=== PATIENT | male | born 1960 | race Caucasian/White ===

== ENCOUNTER 2018-06-09 18:48 | Inpatient (IN) | payer OTHER ==
[~2018-06-09] VITALS: Ht 193 cm; Wt 116.9 kg
[2018-06-09] MEDS ORDERED: NALOXONE 1 MG/ML, 2ML ONE (18:52)
[2018-06-09] MEDS ORDERED: PLEASE ENTER HEIGHT AND WEIGHT MC SCH (19:00)
[2018-06-09] MEDS ORDERED: SODIUM CHLORIDE 0.9% 1,000ML IVBOLUS ONE (19:00)
[2018-06-09] MEDS ORDERED: PROPOFOL 100 ML IV ONE (19:09)
[2018-06-09 19:10] LABS: BASOPHILS # (AUTO) 0.05 x10^3/uL (0-0.1); BASOPHILS % (AUTO) 0 % (0-1); EOSINOPHILS % (AUTO) 0 % (1-7); LYMPHOCYTES # (AUTO) 1.04 x10^3/uL (1-3.4); LYMPHOCYTES % (AUTO) 6 % (22-44); MD NO; MEAN CORPUSCULAR HEMOGLOBIN 30.6 pg (27.5-34.5); MEAN CORPUSCULAR HGB CONC 33.1 g/dL (33.2-36.2); MEAN CORPUSCULAR VOLUME 92.3 fL (81-97); MEAN PLATELET VOLUME 8.2 fL (7.4-10.4); MONOCYTES % (AUTO) 8 % (2-9); NEUTROPHILS # (AUTO) 14.96 x10^3/uL (1.8-6.8); NEUTROPHILS % (AUTO) 86 % (42-75); PLATELET COUNT 271 x10^3/uL (130-400); RED BLOOD COUNT 5.46 x10^6/uL (4.38-5.82); RED CELL DISTRIBUTION WIDTH 13.6 % (9.4-14.8)
[2018-06-09 19:15] LABS: INTERNATIONAL NORMALIZED RATIO 1.11 (0.93-1.1); PROTHROMBIN TIME 11.5 Seconds (9.6-11.5)
[2018-06-09 19:22] LABS: ALANINE AMINOTRANSFERASE 31 U/L (12-78); ANION GAP 10 mmol/L (5-15); CALCIUM 8.7 mg/dL (8.5-10.1); CHLORIDE 103 mmol/L (98-107); CREATININE 2.51 mg/dL (0.7-1.3)
[2018-06-09 19:23] LABS: SALICYLATE LEVEL < 1.7 mg/dL (2.8-20.0)
[2018-06-09 19:24] LABS: ALKALINE PHOSPHATASE 77 U/L (45-117); BILIRUBIN,TOTAL 0.3 mg/dL (0.2-1.0); TOTAL PROTEIN 8.9 g/dL (6.4-8.2)
[2018-06-09 19:25] LABS: ACETAMINOPHEN < 2 mcg/mL (10-30)
[2018-06-09] MEDS ORDERED: ROCURONIUM 10 MG/ML,10ML IVPush ONE (19:30)
[2018-06-09] MEDS ORDERED: ETOMIDATE 40 MG/20 ML IVPush ONE (19:30)
[2018-06-09] MEDS ORDERED: PROPOFOL 100 ML IV PRN ×2 (19:30→21:05)
[2018-06-09 20:20] LABS: MICROSCOPIC INDICATED
[2018-06-09] MEDS ORDERED: CEFTRIAXONE 1,000 MG in SODIUM CHLORIDE 0.9% 50 ML IV SCH (20:30)
[2018-06-09] MEDS ORDERED: NALOXONE 1 MG/ML, 2ML IVPush ONE (20:30)
[2018-06-09 20:32] LABS: CULTURE INDICATED? YES
[2018-06-09] MEDS ORDERED: SODIUM CHLORIDE 0.9% 1,000 ML IV SCH (20:51)
[2018-06-09] MEDS ORDERED: ONDANSETRON 2MG/ML, 2ML IVPush PRN (21:00)
[2018-06-09] MEDS ORDERED: ACETAMINOPHEN 650 MG/20.3 ML UDC NG PRN (21:30)
[2018-06-09] MEDS ORDERED: PHARMACY MAY ADJ FOR RENAL FX MC SCH (21:30)
[2018-06-09] MEDS ORDERED: LIDOCAINE-MPF 1%, 2ML ENDO PRN (21:30)
[2018-06-09] MEDS ORDERED: ETOMIDATE 20 MG/10 ML ONE (21:44)
[2018-06-09] MEDS ORDERED: ROCURONIUM 10 MG/ML,10ML ONE (21:44)
[2018-06-09] MEDS: FAMOTIDINE 20 MG/2 ML IV SCH (22:06)
[2018-06-09] MEDS: AMPICILLIN/SULBACTAM 1,500 MG in SODIUM CHLORIDE 0.9% 50 ML IV SCH (22:06)
[2018-06-09] MEDS: HEPARIN 5,000 UNITS/ML, 1ML SQ SCH (22:06)
[2018-06-09] MEDS: ALBUTEROL/IPRATROPIUM 2.5MG/0.5MG, 3 ML INLINE SCH (22:30)
[2018-06-09] MEDS ORDERED: LEVO200T PO (22:50)
[2018-06-09 23:03] VITALS: BP 103/73
[2018-06-09 23:09] LABS: AMPHETAMINE SCREEN, URINE Negative (Negative); BARBITURATE SCREEN, URINE Negative (Negative); BENZODIAZEPINE SCREEN, URINE Negative (Negative); CANNABINOID SCREEN, URINE Negative (Negative); COCAINE SCREEN, URINE Negative (Negative); METHADONE SCREEN, URINE Negative (Negative); OPIATE SCREEN, URINE Positive (Negative)
[2018-06-10] MEDS: ALBUTEROL/IPRATROPIUM 2.5MG/0.5MG, 3 ML INLINE SCH ×6 (02:21→22:22)
[2018-06-10] MEDS: AMPICILLIN/SULBACTAM 1,500 MG in SODIUM CHLORIDE 0.9% 50 ML IV SCH ×2 (04:07→09:42)
[2018-06-10 04:39] LABS: ALANINE AMINOTRANSFERASE 26 U/L (12-78); ALBUMIN 3.5 g/dL (3.4-5.0); ANION GAP 5 mmol/L (5-15); CALCIUM 7.7 mg/dL (8.5-10.1); CHLORIDE 112 mmol/L (98-107)
[2018-06-10 04:43] LABS: BASOPHILS # (AUTO) 0.01 x10^3/uL (0-0.1); BASOPHILS % (AUTO) 0 % (0-1); EOSINOPHILS # (AUTO) 0.01 x10^3/uL (0-0.4); EOSINOPHILS % (AUTO) 0 % (1-7); LYMPHOCYTES # (AUTO) 0.52 x10^3/uL (1-3.4); LYMPHOCYTES % (AUTO) 5 % (22-44); MD NO; MEAN CORPUSCULAR HEMOGLOBIN 31.4 pg (27.5-34.5); MEAN CORPUSCULAR HGB CONC 34.2 g/dL (33.2-36.2); MEAN CORPUSCULAR VOLUME 91.7 fL (81-97); MEAN PLATELET VOLUME 8.1 fL (7.4-10.4); MONOCYTES # (AUTO) 0.78 x10^3/uL (0.2-0.8); MONOCYTES % (AUTO) 7 % (2-9); NEUTROPHILS # (AUTO) 10.31 x10^3/uL (1.8-6.8); NEUTROPHILS % (AUTO) 89 % (42-75); PLATELET COUNT 181 x10^3/uL (130-400); RED BLOOD COUNT 4.98 x10^6/uL (4.38-5.82); RED CELL DISTRIBUTION WIDTH 13.8 % (9.4-14.8)
[2018-06-10 04:49] LABS: ALKALINE PHOSPHATASE 65 U/L (45-117); BILIRUBIN,TOTAL 0.4 mg/dL (0.2-1.0)
[2018-06-10] MEDS: FAMOTIDINE 20 MG/2 ML IV SCH ×2 (08:14→19:45)
[2018-06-10] MEDS: HEPARIN 5,000 UNITS/ML, 1ML SQ SCH ×2 (08:14→19:45)
[2018-06-10] MEDS: SODIUM CHLORIDE 0.9% 1,000 ML IV SCH ×2 (12:59→20:30)
[2018-06-10] MEDS: AMPICILLIN/SULBACTAM 3 GM in SODIUM CHLORIDE 0.9% 100 ML IV SCH ×2 (15:21→19:45)
[2018-06-11] MEDS: ALBUTEROL/IPRATROPIUM 2.5MG/0.5MG, 3 ML INLINE SCH ×6 (02:30→22:00)
[2018-06-11] MEDS: AMPICILLIN/SULBACTAM 3 GM in SODIUM CHLORIDE 0.9% 100 ML IV SCH ×4 (03:09→20:17)
[2018-06-11] MEDS: SODIUM CHLORIDE 0.9% 1,000 ML IV SCH ×3 (03:09→22:35)
[2018-06-11 04:45] LABS: ALANINE AMINOTRANSFERASE 19 U/L (12-78); ALBUMIN 2.8 g/dL (3.4-5.0); ANION GAP 3 mmol/L (5-15); CALCIUM 7.7 mg/dL (8.5-10.1); CHLORIDE 115 mmol/L (98-107); CREATININE 0.96 mg/dL (0.7-1.3)
[2018-06-11 04:46] LABS: BASOPHILS # (AUTO) 0.05 x10^3/uL (0-0.1); BASOPHILS % (AUTO) 1 % (0-1); EOSINOPHILS # (AUTO) 0.02 x10^3/uL (0-0.4); EOSINOPHILS % (AUTO) 0 % (1-7); LYMPHOCYTES # (AUTO) 0.94 x10^3/uL (1-3.4); LYMPHOCYTES % (AUTO) 11 % (22-44); MD NO; MEAN CORPUSCULAR HEMOGLOBIN 31.1 pg (27.5-34.5); MEAN CORPUSCULAR HGB CONC 33.8 g/dL (33.2-36.2); MEAN CORPUSCULAR VOLUME 91.9 fL (81-97); MONOCYTES # (AUTO) 0.76 x10^3/uL (0.2-0.8); MONOCYTES % (AUTO) 9 % (2-9); NEUTROPHILS % (AUTO) 79 % (42-75); PLATELET COUNT 141 x10^3/uL (130-400); RED BLOOD COUNT 4.14 x10^6/uL (4.38-5.82); RED CELL DISTRIBUTION WIDTH 13.7 % (9.4-14.8)
[2018-06-11 04:47] LABS: ALKALINE PHOSPHATASE 49 U/L (45-117); BILIRUBIN,TOTAL 0.7 mg/dL (0.2-1.0); TOTAL PROTEIN 6.8 g/dL (6.4-8.2)
[2018-06-11] MEDS: HEPARIN 5,000 UNITS/ML, 1ML SQ SCH (12:28)
[2018-06-11] MEDS: FAMOTIDINE 20 MG/2 ML IV SCH ×2 (12:29→14:00)
[2018-06-11] MEDS ORDERED: ALTEPLASE 100 MG in BAG 1 EACH IV ONE (13:30)
[2018-06-11] MEDS ORDERED: CALCIUM CHLORIDE 10%, 10ML SYR ONE (13:30)
[2018-06-11] MEDS ORDERED: EPINEPHRINE SYRINGE 0.1 MG/ML, 10ML ONE ×2 (13:30→18:00)
[2018-06-11] MEDS ORDERED: SODIUM BICARB 8.4%, 50ML SYRINGE ONE ×3 (13:30→18:00)
[2018-06-11] MEDS ORDERED: EPINEPHRINE 1 MG/ML, 30ML ONE (13:30)
[2018-06-11] MEDS ORDERED: SODIUM CHLORIDE 0.9%, 250ML ONE (13:30)
[2018-06-11] MEDS ORDERED: SODIUM BICARB 8.4%, 50ML SYRINGE IVPush STA ×2 (13:53)
[2018-06-11 13:56] LABS: ALANINE AMINOTRANSFERASE 72 U/L (12-78); ALBUMIN 2.8 g/dL (3.4-5.0); ANION GAP 18 mmol/L (5-15); CALCIUM 10.3 mg/dL (8.5-10.1); CHLORIDE 113 mmol/L (98-107); CREATININE 1.41 mg/dL (0.7-1.3)
[2018-06-11] MEDS ORDERED: EPINEPHRINE 1 MG in SODIUM CHLORIDE 0.9% 249 ML IV PRN (13:56)
[2018-06-11] MEDS: SODIUM BICARBONATE 8.4% 150 MEQ in DEXTROSE 5% 1,000 ML IV SCH ×2 (14:00→22:36)
[2018-06-11] MEDS ORDERED: LIDOCAINE-MPF 1%, 2ML ENDO PRN (14:00)
[2018-06-11] MEDS ORDERED: SODIUM BICARBONATE 8.4% 150 MEQ in DEXTROSE 5% 1,000 ML IV SCH (14:00)
[2018-06-11] MEDS ORDERED: PHARMACY MAY ADJ FOR RENAL FX MC SCH (14:00)
[2018-06-11 14:01] LABS: ALKALINE PHOSPHATASE 55 U/L (45-117); BILIRUBIN,TOTAL 0.4 mg/dL (0.2-1.0); TOTAL PROTEIN 6.7 g/dL (6.4-8.2); TROPONIN I 0.182 ng/mL (0.000-0.045)
[2018-06-11 14:25] LABS: BASOPHILS # (AUTO) 0.05 x10^3/uL (0-0.1); BASOPHILS % (AUTO) 0 % (0-1); EOSINOPHILS # (AUTO) 0.03 x10^3/uL (0-0.4); EOSINOPHILS % (AUTO) 0 % (1-7); LYMPHOCYTES # (AUTO) 3.54 x10^3/uL (1-3.4); LYMPHOCYTES % (AUTO) 30 % (22-44); MD NO; MEAN CORPUSCULAR HEMOGLOBIN 31.3 pg (27.5-34.5); MEAN CORPUSCULAR HGB CONC 33.2 g/dL (33.2-36.2); MEAN CORPUSCULAR VOLUME 94.4 fL (81-97); MEAN PLATELET VOLUME 8.4 fL (7.4-10.4); MONOCYTES % (AUTO) 6 % (2-9); NEUTROPHILS # (AUTO) 7.48 x10^3/uL (1.8-6.8); NEUTROPHILS % (AUTO) 63 % (42-75); PLATELET COUNT 118 x10^3/uL (130-400); RED BLOOD COUNT 4.75 x10^6/uL (4.38-5.82)
[2018-06-11] MEDS: PHENYLEPHRINE 20 MG in SODIUM CHLORIDE 0.9% 248 ML IV PRN ×3 (14:32→21:34)
[2018-06-11] MEDS: PROPOFOL 100 ML IV PRN ×3 (14:33→21:34)
[2018-06-11] MEDS ORDERED: VASOPRESSIN 100 UNIT in SODIUM CHLORIDE 0.9% 495 ML IV SCH (15:00)
[2018-06-11] MEDS ORDERED: ATROPINE SYRINGE 0.1 MG/ML, 10ML ONE (18:00)
[2018-06-11] MEDS ORDERED: HEPARIN PROTOCOL IIB/IIIA POST-LYTIC MC STA (18:04)
[2018-06-11] MEDS ORDERED: HEPARIN 25,000 UNITS/500ML PMX 500 ML IV STA (18:04)
[2018-06-11] MEDS ORDERED: HEPARIN 5,000 UNITS/ML, 1ML IV ONE (18:30)
[2018-06-11] MEDS ORDERED: HEPARIN PROTOCOL IIB/IIIA POST-LYTIC MC PRN (18:30)
[2018-06-11] MEDS: HEPARIN 25,000 UNITS/500ML PMX 500 ML IV PRN (19:12)
[2018-06-11 19:17] LABS: ANION GAP 9 mmol/L (5-15); CALCIUM 7.9 mg/dL (8.5-10.1); CHLORIDE 110 mmol/L (98-107)
[2018-06-11 19:22] LABS: CREATININE 2.21 mg/dL (0.7-1.3)
[2018-06-12] MEDS: ALBUTEROL/IPRATROPIUM 2.5MG/0.5MG, 3 ML INLINE SCH ×6 (02:00→22:23)
[2018-06-12] MEDS: FAMOTIDINE 20 MG/2 ML IV SCH (02:41)
[2018-06-12] MEDS: AMPICILLIN/SULBACTAM 3 GM in SODIUM CHLORIDE 0.9% 100 ML IV SCH ×4 (02:41→21:46)
[2018-06-12] MEDS: PROPOFOL 100 ML IV PRN ×5 (02:42→21:46)
[2018-06-12 04:27] LABS: ANION GAP 4 mmol/L (5-15); CALCIUM 7.2 mg/dL (8.5-10.1); CHLORIDE 112 mmol/L (98-107); CREATININE 2.95 mg/dL (0.7-1.3)
[2018-06-12 04:41] LABS: BASOPHILS # (AUTO) 0.03 x10^3/uL (0-0.1); BASOPHILS % (AUTO) 0 % (0-1); EOSINOPHILS % (AUTO) 0 % (1-7); LYMPHOCYTES % (AUTO) 13 % (22-44); MD NO; MEAN CORPUSCULAR HEMOGLOBIN 30.9 pg (27.5-34.5); MEAN CORPUSCULAR HGB CONC 34.2 g/dL (33.2-36.2); MEAN CORPUSCULAR VOLUME 90.6 fL (81-97); MEAN PLATELET VOLUME 7.9 fL (7.4-10.4); MONOCYTES # (AUTO) 0.76 x10^3/uL (0.2-0.8); MONOCYTES % (AUTO) 11 % (2-9); NEUTROPHILS # (AUTO) 5.33 x10^3/uL (1.8-6.8); NEUTROPHILS % (AUTO) 76 % (42-75); PLATELET COUNT 129 x10^3/uL (130-400); RED BLOOD COUNT 4.12 x10^6/uL (4.38-5.82); RED CELL DISTRIBUTION WIDTH 13.6 % (9.4-14.8)
[2018-06-12] MEDS: SODIUM CHLORIDE 0.9% 1,000 ML IV SCH ×4 (05:29→23:54)
[2018-06-12] MEDS ORDERED: OMNIPAQUE 350 MG/ML, 100ML BOTTLE ONE (06:01)
[2018-06-12] MEDS: SODIUM BICARBONATE 8.4% 150 MEQ in DEXTROSE 5% 1,000 ML IV SCH ×2 (08:38→18:16)
[2018-06-12 08:55] LABS: AMPHETAMINE SCREEN, URINE Negative (Negative); BARBITURATE SCREEN, URINE Negative (Negative); BENZODIAZEPINE SCREEN, URINE Negative (Negative); CANNABINOID SCREEN, URINE Negative (Negative); COCAINE SCREEN, URINE Negative (Negative); METHADONE SCREEN, URINE Negative (Negative); OPIATE SCREEN, URINE Positive (Negative)
[2018-06-12] MEDS: HEPARIN 25,000 UNITS/500ML PMX 500 ML IV PRN (17:21)
[2018-06-12] MEDS: ASPIRIN 81 MG TABLET CHEW PO SCH (18:17)
[2018-06-13] MEDS: HEPARIN 25,000 UNITS/500ML PMX 500 ML IV PRN ×2 (01:57→23:16)
[2018-06-13] MEDS: PROPOFOL 100 ML IV PRN ×2 (01:58→05:23)
[2018-06-13] MEDS: FAMOTIDINE 20 MG/2 ML IV SCH (02:02)
[2018-06-13] MEDS: AMPICILLIN/SULBACTAM 3 GM in SODIUM CHLORIDE 0.9% 100 ML IV SCH ×2 (02:02→14:35)
[2018-06-13] MEDS: SODIUM BICARBONATE 8.4% 150 MEQ in DEXTROSE 5% 1,000 ML IV SCH (02:19)
[2018-06-13] MEDS: ALBUTEROL/IPRATROPIUM 2.5MG/0.5MG, 3 ML INLINE SCH ×4 (03:08→14:00)
[2018-06-13 04:00] VITALS: BP 105/55
[2018-06-13 05:01] LABS: ANION GAP 4 mmol/L (5-15); CALCIUM 6.6 mg/dL (8.5-10.1); CHLORIDE 107 mmol/L (98-107); CREATININE 4.06 mg/dL (0.7-1.3)
[2018-06-13 05:04] LABS: BASOPHILS # (AUTO) 0.03 x10^3/uL (0-0.1); BASOPHILS % (AUTO) 0 % (0-1); EOSINOPHILS # (AUTO) 0.13 x10^3/uL (0-0.4); EOSINOPHILS % (AUTO) 2 % (1-7); LYMPHOCYTES # (AUTO) 0.83 x10^3/uL (1-3.4); LYMPHOCYTES % (AUTO) 14 % (22-44); MD NO; MEAN CORPUSCULAR HEMOGLOBIN 30.9 pg (27.5-34.5); MEAN CORPUSCULAR HGB CONC 33.9 g/dL (33.2-36.2); MEAN CORPUSCULAR VOLUME 91.2 fL (81-97); MEAN PLATELET VOLUME 7.8 fL (7.4-10.4); MONOCYTES # (AUTO) 0.39 x10^3/uL (0.2-0.8); MONOCYTES % (AUTO) 6 % (2-9); NEUTROPHILS # (AUTO) 4.76 x10^3/uL (1.8-6.8); NEUTROPHILS % (AUTO) 78 % (42-75); PLATELET COUNT 108 x10^3/uL (130-400); RED BLOOD COUNT 3.38 x10^6/uL (4.38-5.82); RED CELL DISTRIBUTION WIDTH 13.3 % (9.4-14.8)
[2018-06-13] MEDS: SODIUM CHLORIDE 0.9% 1,000 ML IV SCH (05:15)
[2018-06-13] MEDS ORDERED: MAGNESIUM SULFATE 1 GM in SODIUM CHLORIDE 0.9% 50 ML IV ONE (10:30)
[2018-06-13] MEDS ORDERED: POTASSIUM CHLORIDE 10% 40 MEQ/30 ML UDC PO ONE (10:30)
[2018-06-13] MEDS ORDERED: HEPARIN 25,000 UNITS/500ML PMX 500 ML IV PRN ×2 (14:30→18:30)
[2018-06-13] MEDS: HEPARIN 5,000 UNITS/ML, 1ML IV PRN ×2 (14:34→21:25)
[2018-06-13] MEDS: ASPIRIN 81 MG TABLET CHEW PO SCH (19:39)
[2018-06-13] MEDS ORDERED: SODIUM CHLORIDE 0.9% 1,000 ML IV SCH (20:51)
[2018-06-14] MEDS: AMPICILLIN/SULBACTAM 3 GM in SODIUM CHLORIDE 0.9% 100 ML IV SCH ×2 (02:20→14:22)
[2018-06-14] MEDS: FAMOTIDINE 20 MG/2 ML IV SCH (02:20)
[2018-06-14 03:52] LABS: BASOPHILS # (AUTO) 0.02 x10^3/uL (0-0.1); BASOPHILS % (AUTO) 0 % (0-1); EOSINOPHILS # (AUTO) 0.22 x10^3/uL (0-0.4); EOSINOPHILS % (AUTO) 3 % (1-7); LYMPHOCYTES # (AUTO) 0.64 x10^3/uL (1-3.4); LYMPHOCYTES % (AUTO) 10 % (22-44); MD NO; MEAN CORPUSCULAR HEMOGLOBIN 30.6 pg (27.5-34.5); MEAN CORPUSCULAR HGB CONC 33.5 g/dL (33.2-36.2); MEAN CORPUSCULAR VOLUME 91.5 fL (81-97); MEAN PLATELET VOLUME 7.6 fL (7.4-10.4); MONOCYTES # (AUTO) 0.56 x10^3/uL (0.2-0.8); MONOCYTES % (AUTO) 8 % (2-9); NEUTROPHILS # (AUTO) 5.21 x10^3/uL (1.8-6.8); NEUTROPHILS % (AUTO) 78 % (42-75); PLATELET COUNT 134 x10^3/uL (130-400); RED BLOOD COUNT 3.41 x10^6/uL (4.38-5.82); RED CELL DISTRIBUTION WIDTH 13.4 % (9.4-14.8)
[2018-06-14 03:53] LABS: ANION GAP 6 mmol/L (5-15); CALCIUM 7.3 mg/dL (8.5-10.1); CHLORIDE 105 mmol/L (98-107); CREATININE 3.86 mg/dL (0.7-1.3)
[2018-06-14] MEDS: HEPARIN 5,000 UNITS/ML, 1ML IV PRN ×3 (03:59→19:38)
[2018-06-14 04:00] VITALS: BP 144/82
[2018-06-14] MEDS: HEPARIN 25,000 UNITS/500ML PMX 500 ML IV PRN (14:25)
[2018-06-14] MEDS: ASPIRIN 81 MG TABLET CHEW PO SCH (17:57)
[2018-06-14 19:34] VITALS: BP 171/94
[2018-06-15 00:22] VITALS: BP 158/90
[2018-06-15 01:52] LABS: ANION GAP 6 mmol/L (5-15); CALCIUM 7.5 mg/dL (8.5-10.1); CHLORIDE 103 mmol/L (98-107); CREATININE 3.29 mg/dL (0.7-1.3)
[2018-06-15] MEDS: HEPARIN 5,000 UNITS/ML, 1ML IV PRN ×3 (02:13→17:47)
[2018-06-15] MEDS: AMPICILLIN/SULBACTAM 3 GM in SODIUM CHLORIDE 0.9% 100 ML IV SCH ×2 (02:25→14:27)
[2018-06-15] MEDS: HEPARIN 25,000 UNITS/500ML PMX 500 ML IV PRN ×3 (02:40→23:59)
[2018-06-15 06:49] VITALS: BP 155/83
[2018-06-15 13:27] VITALS: BP 152/79
[2018-06-15 21:40] VITALS: BP 143/89
[2018-06-15] MEDS: ASPIRIN 81 MG TABLET CHEW PO SCH (21:44)
[2018-06-16 01:00] VITALS: BP 119/71
[2018-06-16] MEDS: AMPICILLIN/SULBACTAM 3 GM in SODIUM CHLORIDE 0.9% 100 ML IV SCH ×2 (01:48→13:51)
[2018-06-16] MEDS ORDERED: ACETAMINOPHEN 325 MG TABLET PO PRN (03:30)
[2018-06-16 07:37] LABS: ANION GAP 9 mmol/L (5-15); CALCIUM 7.6 mg/dL (8.5-10.1); CHLORIDE 102 mmol/L (98-107)
[2018-06-16 07:49] VITALS: BP 123/76
[2018-06-16 08:02] LABS: CREATININE 2.61 mg/dL (0.7-1.3)
[2018-06-16] MEDS: HEPARIN 25,000 UNITS/500ML PMX 500 ML IV PRN ×2 (09:32→21:32)
[2018-06-16 12:36] VITALS: BP 129/80
[2018-06-16] MEDS ORDERED: HEPARIN 5,000 UNITS/ML, 1ML IV PRN (13:30)
[2018-06-16] MEDS ORDERED: HEPARIN 25,000 UNITS/500ML PMX 500 ML IV PRN (13:30)
[2018-06-16] MEDS ORDERED: HEPARIN 5,000 UNITS/ML, 1ML IV ONE (13:30)
[2018-06-16 20:09] VITALS: BP 117/62
[2018-06-16] MEDS: ASPIRIN 81 MG TABLET CHEW PO SCH (20:22)
[2018-06-17] VITALS (9 sets, daily range): BP systolic 92–140; BP diastolic 51–74
[2018-06-17] MEDS: HEPARIN 5,000 UNITS/ML, 1ML IV PRN (05:33)
[2018-06-17] MEDS: HEPARIN 25,000 UNITS/500ML PMX 500 ML IV PRN (06:53)
[2018-06-17] MEDS ORDERED: AMOXICILLIN/CLAV 875-125MG TABLET PO SCH (11:00)
[2018-06-17] MEDS ORDERED: NALOXONE 0.4 MG/ML, 1ML ONE ×2 (11:19→11:29)
[2018-06-17] MEDS ORDERED: NALOXONE 0.4 MG/ML, 1ML IVPush STA ×2 (11:28)
[2018-06-17] MEDS ORDERED: PROTAMINE SULFATE 50 MG in SODIUM CHLORIDE 0.9% 50 ML IV ONE (13:00)
[2018-06-17 13:29] LABS: INTERNATIONAL NORMALIZED RATIO 1.08 (0.93-1.1); PROTHROMBIN TIME 11.2 Seconds (9.6-11.5)
[2018-06-17 13:35] LABS: MEAN CORPUSCULAR HEMOGLOBIN 32.2 pg (27.5-34.5); MEAN CORPUSCULAR HGB CONC 34.8 g/dL (33.2-36.2); MEAN CORPUSCULAR VOLUME 92.6 fL (81-97); MEAN PLATELET VOLUME 8.7 fL (7.4-10.4); PLATELET COUNT 260 x10^3/uL (130-400); RED CELL DISTRIBUTION WIDTH 13.3 % (9.4-14.8)
[2018-06-17 13:56] LABS: MD YES
[2018-06-17 14:26] LABS: BAND#(MANUAL) 0.64 x10^3/uL; BANDS%(MANUAL) 4 % (0-7); EOS#(MANUAL) 0.32 x10^3/uL (0.0-0.4); EOS% (MANUAL) 2 % (1-7); LYMPH#(MANUAL) 1.43 x10^3/uL (1-3.4); LYMPHS% (MANUAL) 9 % (22-44); METAMYELOCYTES# (MANUAL) 0.48 x10^3/uL (0-0); METAMYELOCYTES% (MANUAL) 3 % (0-1); MONOS#(MANUAL) 0.32 x10^3/uL (0.3-2.7); MONOS% (MANUAL) 2 % (2-9); MYELOCYTES# (MANUAL) 0.16 x10^3/uL (0-0); MYELOCYTES% (MANUAL) 1 % (0-0); NRBC % (MANUAL) 1 % (0-1); SEG#(MANUAL) 12.56 x10^3/uL (1.8-6.8); SEGS% (MANUAL) 79 % (42-75)
[2018-06-17 14:28] LABS: ANISOCYTOSIS 1+
[2018-06-17 14:29] LABS: POLYCHROMASIA 1+
[2018-06-17 14:30] LABS: <PLATELET ESTIMATE> ADEQUATE; LARGE PLATELETS 1+
[2018-06-17 14:31] LABS: TOXIC GRAN 1+
[2018-06-17] MEDS ORDERED: SODIUM CHLORIDE 0.9% 1,000 ML IV SCH (15:30)
[2018-06-17 18:57] LABS: AMPHETAMINE SCREEN, URINE Negative (Negative); BARBITURATE SCREEN, URINE Negative (Negative); BENZODIAZEPINE SCREEN, URINE Negative (Negative); CANNABINOID SCREEN, URINE Negative (Negative); COCAINE SCREEN, URINE Negative (Negative); METHADONE SCREEN, URINE Negative (Negative); OPIATE SCREEN, URINE Positive (Negative)
[2018-06-18] VITALS (9 sets, daily range): BP systolic 113–165; BP diastolic 55–99
[2018-06-18 05:13] LABS: MEAN CORPUSCULAR HEMOGLOBIN 31.6 pg (27.5-34.5); MEAN CORPUSCULAR HGB CONC 34.5 g/dL (33.2-36.2); MEAN CORPUSCULAR VOLUME 91.6 fL (81-97); MEAN PLATELET VOLUME 8.1 fL (7.4-10.4); PLATELET COUNT 224 x10^3/uL (130-400); RED BLOOD COUNT 2.02 x10^6/uL (4.38-5.82); RED CELL DISTRIBUTION WIDTH 14.5 % (9.4-14.8)
[2018-06-18 05:15] LABS: ALBUMIN 2.4 g/dL (3.4-5.0); ANION GAP 9 mmol/L (5-15); CALCIUM 7.9 mg/dL (8.5-10.1); CHLORIDE 108 mmol/L (98-107)
[2018-06-18 05:17] LABS: ALANINE AMINOTRANSFERASE 30 U/L (12-78); ALKALINE PHOSPHATASE 49 U/L (45-117); BILIRUBIN,TOTAL 0.5 mg/dL (0.2-1.0); CREATININE 2.06 mg/dL (0.7-1.3); TOTAL PROTEIN 5.8 g/dL (6.4-8.2)
[2018-06-18 05:48] LABS: BASOPHILS # (AUTO) 0.04 x10^3/uL (0-0.1); BASOPHILS % (AUTO) 0 % (0-1); EOSINOPHILS # (AUTO) 0.19 x10^3/uL (0-0.4); EOSINOPHILS % (AUTO) 1 % (1-7); LYMPHOCYTES # (AUTO) 1.02 x10^3/uL (1-3.4); LYMPHOCYTES % (AUTO) 8 % (22-44); MD SCAN; MONOCYTES # (AUTO) 0.76 x10^3/uL (0.2-0.8); MONOCYTES % (AUTO) 6 % (2-9); NEUTROPHILS # (AUTO) 11.47 x10^3/uL (1.8-6.8); NEUTROPHILS % (AUTO) 85 % (42-75)
[2018-06-18] MEDS ORDERED: GADOBUTROL 10 MMOL/10 ML PFS ONE (12:27)
[2018-06-18] MEDS: hydrALAzine 20 MG/ML, 1ML IV PRN (18:33)
[2018-06-19 04:11] VITALS: BP 110/55
[2018-06-19 04:54] LABS: ANION GAP 9 mmol/L (5-15); CALCIUM 7.8 mg/dL (8.5-10.1); CHLORIDE 109 mmol/L (98-107)
[2018-06-19 04:55] LABS: CREATININE 1.86 mg/dL (0.7-1.3)
[2018-06-19 05:09] LABS: MEAN CORPUSCULAR HGB CONC 34.6 g/dL (33.2-36.2); MEAN CORPUSCULAR VOLUME 92.5 fL (81-97); MEAN PLATELET VOLUME 7.8 fL (7.4-10.4); PLATELET COUNT 249 x10^3/uL (130-400); RED BLOOD COUNT 2.59 x10^6/uL (4.38-5.82); RED CELL DISTRIBUTION WIDTH 14.1 % (9.4-14.8)
[2018-06-19 05:39] LABS: MD YES
[2018-06-19 05:41] LABS: BAND#(MANUAL) 0.65 x10^3/uL; BANDS%(MANUAL) 5 % (0-7); EOS#(MANUAL) 0.39 x10^3/uL (0.0-0.4); EOS% (MANUAL) 3 % (1-7); LYMPHS% (MANUAL) 7 % (22-44); MONOS#(MANUAL) 0.52 x10^3/uL (0.3-2.7); MONOS% (MANUAL) 4 % (2-9); MYELOCYTES# (MANUAL) 0.39 x10^3/uL (0-0); MYELOCYTES% (MANUAL) 3 % (0-0); NRBC % (MANUAL) 2 % (0-1); SEG#(MANUAL) 10.06 x10^3/uL (1.8-6.8); SEGS% (MANUAL) 78 % (42-75)
[2018-06-19 05:42] LABS: <PLATELET ESTIMATE> ADEQUATE; ANISOCYTOSIS 1+; POLYCHROMASIA 1+
[2018-06-19 05:43] LABS: LARGE PLATELETS 1+
[2018-06-19 08:00] VITALS: BP 151/87
[2018-06-19 09:43] VITALS: BP 152/80
[2018-06-19] MEDS: PANTOPROZOLE 40MG TABLET PO SCH ×2 (10:29→21:44)
[2018-06-19 13:22] VITALS: BP 178/97
[2018-06-19 13:37] VITALS: BP 159/84
[2018-06-19 18:41] VITALS: BP 149/80
[2018-06-20 01:14] VITALS: BP 131/73
[2018-06-20 07:43] VITALS: BP 141/84
[2018-06-20] MEDS: PANTOPROZOLE 40MG TABLET PO SCH ×2 (10:11→22:15)
[2018-06-20 12:23] VITALS: BP 170/75
[2018-06-20 12:25] VITALS: BP 144/80
[2018-06-20 14:26] LABS: ANION GAP 9 mmol/L (5-15); CALCIUM 7.8 mg/dL (8.5-10.1); CHLORIDE 106 mmol/L (98-107); CREATININE 1.67 mg/dL (0.7-1.3)
[2018-06-20 14:30] LABS: MEAN CORPUSCULAR HEMOGLOBIN 32.3 pg (27.5-34.5); MEAN CORPUSCULAR HGB CONC 34.5 g/dL (33.2-36.2); MEAN CORPUSCULAR VOLUME 93.4 fL (81-97); RED BLOOD COUNT 2.86 x10^6/uL (4.38-5.82); RED CELL DISTRIBUTION WIDTH 15.1 % (9.4-14.8)
[2018-06-20 14:31] LABS: MD YES; MEAN PLATELET VOLUME 6.9 fL (7.4-10.4); PLATELET COUNT 330 x10^3/uL (130-400)
[2018-06-20 15:02] LABS: ANISOCYTOSIS 2+; BAND#(MANUAL) 0.23 x10^3/uL; BANDS%(MANUAL) 2 % (0-7); BASOS#(MANUAL) 0.12 x10^3/uL (0-0.1); BASOS% (MANUAL) 1 % (0-1); EOS#(MANUAL) 0.12 x10^3/uL (0.0-0.4); EOS% (MANUAL) 1 % (1-7); LYMPH#(MANUAL) 1.04 x10^3/uL (1-3.4); LYMPHS% (MANUAL) 9 % (22-44); METAMYELOCYTES# (MANUAL) 0.23 x10^3/uL (0-0); METAMYELOCYTES% (MANUAL) 2 % (0-1); MICROCYTOSIS 1+; MONOS#(MANUAL) 0.35 x10^3/uL (0.3-2.7); MONOS% (MANUAL) 3 % (2-9); SEG#(MANUAL) 9.51 x10^3/uL (1.8-6.8); SEGS% (MANUAL) 82 % (42-75)
[2018-06-20 15:03] LABS: <PLATELET ESTIMATE> ADEQUATE; OVALOCYTES 1+; POLYCHROMASIA 1+; SMUDGE CELLS 1+; TOXIC GRAN 1+
[2018-06-20 15:04] LABS: LARGE PLATELETS 1+
[2018-06-20 20:13] VITALS: BP 141/95
[2018-06-21 02:30] VITALS: BP 138/75
[2018-06-21 06:02] LABS: BASOPHILS # (AUTO) 0.04 x10^3/uL (0-0.1); BASOPHILS % (AUTO) 0 % (0-1); EOSINOPHILS # (AUTO) 0.24 x10^3/uL (0-0.4); EOSINOPHILS % (AUTO) 2 % (1-7); LYMPHOCYTES # (AUTO) 1.13 x10^3/uL (1-3.4); LYMPHOCYTES % (AUTO) 10 % (22-44); MD NO; MEAN CORPUSCULAR HEMOGLOBIN 31.7 pg (27.5-34.5); MEAN CORPUSCULAR HGB CONC 33.8 g/dL (33.2-36.2); MEAN CORPUSCULAR VOLUME 93.9 fL (81-97); MEAN PLATELET VOLUME 7.4 fL (7.4-10.4); MONOCYTES # (AUTO) 0.62 x10^3/uL (0.2-0.8); MONOCYTES % (AUTO) 6 % (2-9); NEUTROPHILS # (AUTO) 9.23 x10^3/uL (1.8-6.8); NEUTROPHILS % (AUTO) 82 % (42-75); PLATELET COUNT 332 x10^3/uL (130-400); RED BLOOD COUNT 2.75 x10^6/uL (4.38-5.82); RED CELL DISTRIBUTION WIDTH 15.4 % (9.4-14.8)
[2018-06-21 06:20] LABS: CHLORIDE 106 mmol/L (98-107)
[2018-06-21 06:32] LABS: ALANINE AMINOTRANSFERASE 27 U/L (12-78); ALBUMIN 2.6 g/dL (3.4-5.0); ALKALINE PHOSPHATASE 59 U/L (45-117); ANION GAP 9 mmol/L (5-15); BILIRUBIN,TOTAL 0.5 mg/dL (0.2-1.0); CALCIUM 7.8 mg/dL (8.5-10.1); CREATININE 1.81 mg/dL (0.7-1.3); TOTAL PROTEIN 6.4 g/dL (6.4-8.2)
[2018-06-21 07:27] VITALS: BP 135/84
[2018-06-21] MEDS: PANTOPROZOLE 40MG TABLET PO SCH ×2 (10:31→21:56)
[2018-06-21 14:50] VITALS: BP 135/79
[2018-06-21 20:18] VITALS: BP_SYST 162; BP_SYST 169; BP_DIAS 80; BP_DIAS 90
[2018-06-21] MEDS: hydrALAzine 20 MG/ML, 1ML IV PRN (21:03)
[2018-06-21 21:58] VITALS: BP 124/69
[2018-06-22 01:34] VITALS: BP 125/75
[2018-06-22 04:57] LABS: BASOPHILS # (AUTO) 0.04 x10^3/uL (0-0.1); BASOPHILS % (AUTO) 0 % (0-1); EOSINOPHILS # (AUTO) 0.17 x10^3/uL (0-0.4); EOSINOPHILS % (AUTO) 2 % (1-7); LYMPHOCYTES # (AUTO) 1.06 x10^3/uL (1-3.4); LYMPHOCYTES % (AUTO) 10 % (22-44); MD NO; MEAN CORPUSCULAR HEMOGLOBIN 30.3 pg (27.5-34.5); MEAN CORPUSCULAR HGB CONC 32.5 g/dL (33.2-36.2); MEAN CORPUSCULAR VOLUME 93.2 fL (81-97); MEAN PLATELET VOLUME 6.6 fL (7.4-10.4); MONOCYTES # (AUTO) 0.47 x10^3/uL (0.2-0.8); MONOCYTES % (AUTO) 5 % (2-9); NEUTROPHILS # (AUTO) 8.83 x10^3/uL (1.8-6.8); NEUTROPHILS % (AUTO) 84 % (42-75); PLATELET COUNT 368 x10^3/uL (130-400); RED CELL DISTRIBUTION WIDTH 16.4 % (9.4-14.8)
[2018-06-22 05:12] LABS: ANION GAP 6 mmol/L (5-15); CALCIUM 8.5 mg/dL (8.5-10.1); CHLORIDE 107 mmol/L (98-107)
[2018-06-22 05:13] LABS: CREATININE 1.67 mg/dL (0.7-1.3)
[2018-06-22 08:00] VITALS: BP 135/78
[2018-06-22] MEDS: PANTOPROZOLE 40MG TABLET PO SCH ×2 (10:00→21:06)
[2018-06-22 13:23] VITALS: BP 133/76
[2018-06-22 19:25] VITALS: BP 123/80
[2018-06-23 02:12] VITALS: BP 131/78
[2018-06-23] MEDS: PANTOPROZOLE 40MG TABLET PO SCH ×2 (09:19→21:12)
[2018-06-23 09:28] VITALS: BP 119/74
[2018-06-23 13:05] VITALS: BP 117/76
[2018-06-23 18:46] VITALS: BP 121/72
[2018-06-24 00:21] VITALS: BP 114/67
[2018-06-24 08:02] VITALS: BP 121/73
[2018-06-24] MEDS: PANTOPROZOLE 40MG TABLET PO SCH ×2 (09:17→20:38)
[2018-06-24 14:18] VITALS: BP 113/74
[2018-06-24 20:44] VITALS: BP 105/66
[2018-06-25 01:29] VITALS: BP 113/72
[2018-06-25 07:27] VITALS: BP 126/84
[2018-06-25 08:24] LABS: ALBUMIN 3.2 g/dL (3.4-5.0); ANION GAP 8 mmol/L (5-15); CALCIUM 8.1 mg/dL (8.5-10.1); CHLORIDE 105 mmol/L (98-107); CREATININE 1.62 mg/dL (0.7-1.3)
[2018-06-25 08:26] LABS: BASOPHILS # (AUTO) 0.06 x10^3/uL (0-0.1); BASOPHILS % (AUTO) 1 % (0-1); EOSINOPHILS # (AUTO) 0.21 x10^3/uL (0-0.4); EOSINOPHILS % (AUTO) 3 % (1-7); LYMPHOCYTES # (AUTO) 1.02 x10^3/uL (1-3.4); LYMPHOCYTES % (AUTO) 13 % (22-44); MD NO; MEAN CORPUSCULAR HEMOGLOBIN 30.5 pg (27.5-34.5); MEAN CORPUSCULAR HGB CONC 32.8 g/dL (33.2-36.2); MEAN CORPUSCULAR VOLUME 92.8 fL (81-97); MEAN PLATELET VOLUME 6.8 fL (7.4-10.4); MONOCYTES # (AUTO) 0.38 x10^3/uL (0.2-0.8); MONOCYTES % (AUTO) 5 % (2-9); NEUTROPHILS # (AUTO) 6.16 x10^3/uL (1.8-6.8); NEUTROPHILS % (AUTO) 79 % (42-75); PLATELET COUNT 402 x10^3/uL (130-400); RED CELL DISTRIBUTION WIDTH 16.8 % (9.4-14.8)
[2018-06-25] MEDS: PANTOPROZOLE 40MG TABLET PO SCH ×2 (09:22→21:14)
[2018-06-25 13:09] VITALS: BP 137/77
[2018-06-25 18:57] VITALS: BP 129/79
[2018-06-26 01:56] VITALS: BP 121/77
[2018-06-26 06:54] VITALS: BP 127/77
[2018-06-26] MEDS: PANTOPROZOLE 40MG TABLET PO SCH ×2 (09:05→20:06)
[2018-06-26] MEDS ORDERED: PANT40TA5 PO (11:24)
[2018-06-26 12:37] VITALS: BP 126/79
[2018-06-26 19:43] VITALS: BP 128/76
[2018-06-27 01:06] VITALS: BP 130/81
[2018-06-27 07:14] VITALS: BP 117/71
[2018-06-27] MEDS: PANTOPROZOLE 40MG TABLET PO SCH (10:01)
[2018-06-27 12:17] VITALS: BP 118/80
== END 2018-06-27 18:06 | DRG 871 ==
LOC: SUATTDRO 20:50 → ED 21:06 → CCU 21:07 → 5SO 06-14 18:04 → CCU 06-17 12:21 → 4EST 06-19 09:33 → 4WST 06-21 21:34
PROVIDERS: ADMIT Hospitalist; ATTEND Hospitalist
PROC: 5A1945Z Respiratory Ventilation, 24-96 Consecutive Hours (ICD-10-PCS; 2018-06-09)
PROC: 0BH17EZ Insertion of Endotracheal Airway into Trachea, Via Natural or Artificial Opening (ICD-10-PCS; 2018-06-09)
PROC: 0BH17EZ Insertion of Endotracheal Airway into Trachea, Via Natural or Artificial Opening (ICD-10-PCS; 2018-06-11)
PROC: 5A1945Z Respiratory Ventilation, 24-96 Consecutive Hours (ICD-10-PCS; 2018-06-11)
PROC: 3E03317 Introduction of Other Thrombolytic into Peripheral Vein, Percutaneous Approach (ICD-10-PCS; 2018-06-11)
PROC: 30233N1 Transfusion of Nonautologous Red Blood Cells into Peripheral Vein, Percutaneous Approach (ICD-10-PCS; principal; 2018-06-17)
PROC: 5A12012 Performance of Cardiac Output, Single, Manual (ICD-10-PCS; 2018-06-17)
DX: A41.9 Sepsis, unspecified organism (principal); J69.0 Pneumonitis due to inhalation of food and vomit; G92 Toxic encephalopathy; J96.00 Acute respiratory failure, unspecified whether with hypoxia or hypercapnia; I21.4 Non-ST elevation (NSTEMI) myocardial infarction; N17.0 Acute kidney failure with tubular necrosis; I46.9 Cardiac arrest, cause unspecified; I61.4 Nontraumatic intracerebral hemorrhage in cerebellum; S22.42XA Multiple fractures of ribs, left side, initial encounter for closed fracture; Z99.11 Dependence on respirator [ventilator] status; D62 Acute posthemorrhagic anemia; E87.0 Hyperosmolality and hypernatremia; E87.3 Alkalosis; G93.1 Anoxic brain damage, not elsewhere classified; K92.2 Gastrointestinal hemorrhage, unspecified; M62.82 Rhabdomyolysis; T40.1X2A Poisoning by heroin, intentional self-harm, initial encounter; D63.8 Anemia in other chronic diseases classified elsewhere; D69.6 Thrombocytopenia, unspecified; E03.9 Hypothyroidism, unspecified; E11.22 Type 2 diabetes mellitus with diabetic chronic kidney disease; F32.9 Major depressive disorder, single episode, unspecified; I07.1 Rheumatic tricuspid insufficiency; Z51.5 Encounter for palliative care; R91.1 Solitary pulmonary nodule; I27.20 Pulmonary hypertension, unspecified; N05.9 Unspecified nephritic syndrome with unspecified morphologic changes; N14.1 Nephropathy induced by other drugs, medicaments and biological substances; N18.9 Chronic kidney disease, unspecified; Z66 Do not resuscitate; F17.200 Nicotine dependence, unspecified, uncomplicated; F10.20 Alcohol dependence, uncomplicated; Y92.89 Other specified places as the place of occurrence of the external cause; Z91.5 Personal history of self-harm
CPT/HCPCS: 31500; 36415; 36600; 51702; 99291; J7620; S0028; 70450; 70553; 71045; 71275; 80048; 80053; 80307; 80329; 81001; 82040; 82140; 82550; 82803; 82962; 83605; 83735; 84100; 84443; 84478; 84484; 85014; 85018; 85025; 85520; 85610; 85730; 86850; 86900; 86923; 87040; 87070; 87081; 87086; 87205; 92950; 93005; 93306; 93970; 94002; 94003; 94640; A9585; G0378; J0295; J0461; J1644; J2310; J2704; J2720; J2997; J3475; J7070; Q9967; 92523-GN; G0480; J0171; J0360; J2370; J7030; J7040; J7050; P9016